=== PATIENT | male | born 1990 | race African-American/Black ===

== ENCOUNTER 2023-06-09 19:51 | Emergency (ER) | payer SELFPAY ==
[~2023-06-09] VITALS: Ht 180.3 cm; Wt 90.7 kg
[2023-06-09 20:50] VITALS: O2SAT 99
[2023-06-09 23:34] VITALS: BP 120/74; PULSE 68; RESP 18; TEMP 98.6
== END 2023-06-09 23:36 | disposition home or self-care (01) ==
LOC: ER 19:51
DX: M79.18 Myalgia, other site (principal); R10.9 Unspecified abdominal pain; F19.90 Other psychoactive substance use, unspecified, uncomplicated
CPT/HCPCS: 99281